=== PATIENT | male | born 1940 | race Caucasian/White ===

== ENCOUNTER 2016-11-09 18:46 | Emergency (ER) | payer MEDICAID, MEDICARE, OTHER ==
[2016-11-09] MEDS ORDERED: HYDROmorphone 2 MG/ML SDV IM ONE (19:01)
[2016-11-09] MEDS ORDERED: Ondansetron 4 MG/2 ML SDV IVPUSH ONE ×2 (19:14→20:35)
[2016-11-09] MEDS ORDERED: Sodium Chloride 0.9% 1,000 ML IV ONE (19:15)
[2016-11-09] MEDS ORDERED: ceFAZolin 2 GM in Sodium Chloride 0.9% 100 ML IV ONE (19:16)
[2016-11-09 21:43] VITALS: BP 135/85
--- NOTE | 2016-11-10 13:24 | ER ---
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 Pasteurella multocida was cultured out. The patient was treated with Flagyl and Unasyn from 10/01/16 through 10/13/16. He was discharged on 875 mg Augmentin for 21 days and finished on 11/05/16. He had one complication. He had mild dysuria in the hospital. This was result of what he calls, "I always get burning when I pass urine, any time I have antibiotics." Today at 1730 hours, the patient was carrying grain to his hogs at home. A horse that roams the barnyard outside of the pen chose to get at his corn that he was carrying. This resulted in the patient being knocked down twice by head butts from the horse. When Yusef Pinon, the patient, denied the horse further corn, the horse decided to kick him. It turned around, backed up and kicked him in the left humerus. He had instant pain. Arrangements made by paramedics to transport to the hospital for further evaluation. The patient arrived to the hospital at 1846 hours. At 1910 hours, a coapting shoulder splint was placed on a very crepitant humerus. X-ray was completed, demonstrated good position of the reduced humerus. At 2000 hours, repetitive physical exam, repetitive x8, radius and ulnar pulses were taken, and the pulses were 4+ out of 4+. Good capillary fill was noted but moderate acrocyanosis left forearm noted. At 2029 hours, Dr. Chen, orthopedist, [facility], accepted the patient for transfer to room [facility]. The patient will be going to the OR for further incision and drainage and lavage and washing of the wound. At 2100 hours, cap fill was noted to be 1+; acrocyanosis was less, as a new coapting shorter splint was placed on his left shoulder, upper arm. At 5 hours, the patient was transferred onto ambulance for transport to [facility]. Time spent with the patient 1846 hours through 2110 hours, 2 hours and 34 minutes. DIAGNOSES: 1. Left mid humerus comminuted transverse shaft fracture. 2. Compound fracture with 1.5 to 2 cm exit of bone through the lateral upper arm, compound fracture. 3. Status post 12 days of intravenous Flagyl and Unasyn treatment for Pasteurella multocida cultured out of his wound, dog bite from admission on 10/01/16 and 21 days Augmentin 875 mg treatment oral therapy through November 05, 2016. 4. Complication of dysuria from antibiotic use while in hospital with resultant normal PSA. 5. PATIENT RECEIVED 2 GRAM ANCEF IMMEDIATELY ON ARRIVE TO ED. /[id number] BAM/PARISH RICED
--- NOTE | 2016-11-10 14:05 | CR ---
INDICATION: Kicked by a horse. Comminuted fracture. LEFT HUMERUS: An AP view of the left humerus was obtained and revealed a transverse to oblique fracture with very minimal comminution at the mid shaft of the humerus. There appears to be anterior offset of the distal fracture fragment of approximately 7-8 mm. Slight distraction of the fracture fragments is noted. A splint is present. IMPRESSION: Comminuted fracture mid shaft left humerus. Minimal distraction and angulation on this image. [facility]
--- NOTE | 2016-11-10 14:12 | CR ---
INDICATION: Kicked by a horse. CHEST: A single frontal view of the chest 11/09/2016, in a patient kicked by a horse with comminuted left humeral fracture, revealed the heart to be somewhat enlarged in appearance, emphasized by a relatively poor inspiration. The examination was obtained AP portable supine. A definite active infiltrate or effusion or contusion was not identified. No definite pneumothorax was seen. The aorta is somewhat tortuous. MTDD
== END 2016-11-09 21:35 ==
LOC: FB.ED 18:46
DX: S42.352A Displaced comminuted fracture of shaft of humerus, left arm, initial encounter for closed fracture (principal); W55.12XA Struck by horse, initial encounter; Z87.898 Personal history of other specified conditions
CPT/HCPCS: 24505; 36415; 71010; 73060; 80053; 85025; 96365; 96372; 96375; 99283; 99285; A4217; J0690; J1170; J2405; J7030; J7040; 29105

== ENCOUNTER 2017-12-08 10:05 | Inpatient (IN) | payer MEDICARE, OTHER ==
[2017-12-08] MEDS: Sodium Chloride 0.9% 10 ML Syringe FLUSH PRN ×4 (10:10→20:41)
--- NOTE | 2017-12-08 10:10 | EDM.PDOC ---
ED HPI GENERAL MEDICAL PROBLEM - General Stated Complaint: CHEST PAIN Time Seen by Provider: 12/08/17 10:05 Source of Information: Reports: Patient, Family (a friend) History Limitations: Reports: Respiratory Distress - History of Present Illness INITIAL COMMENTS - FREE TEXT/NARRATIVE: 77 y.o.w.m with a H/O CHF, HTN and new onset of a fib, came to the ed due to CP while he underwent an Echocardiogram here at [place]. Echocardiogram showed an EF of 40 with wall motion abnormality of septum. Pt had no chest pain as he arrived here in the ed. Pt took a full ASA at 7 am. Pt lives with a friend and has no own family. Pt is a poor historian. No N/V/D or any ther acute medical issues. BP 141/96 Pulse 112 RR 18 Temp 36.8P2 sat 95% on RA Onset Date: 12/08/17 Onset Time: 08:00 Duration: Hour(s): Location: Reports: Chest Quality: Reports: Ache, Dull, Pressure Severity: Mild Improves with: Reports: Medication Worsens with: Reports: Other Context: Reports: Other (rest) Treatments [employer]: Reports: Aspirin (324 mg at 7 am) - Related Data Allergies Allergy/AdvReac Type Severity Reaction Status Date / Time No Known Allergies Allergy Verified 12/08/17 10:56 Home Meds: Home Meds Lisinopril/Hydrochlorothiazide [Lisinopril-Hctz 20-25 mg Tab] 1 tab PO DAILY # 60 tablet 10/13/16 [Rx] Metoprolol Succinate [Toprol XL 100mg] 100 mg PO DAILY #60 tab.er 10/13/16 [Rx] amLODIPine Besylate [Norvasc] 2.5 mg PO DAILY #60 tablet 10/13/16 [Rx] atorvaSTATin [Lipitor] 10 mg PO DAILY #60 tablet 10/13/16 [Rx] Furosemide [Lasix] 20 mg PO DAILY 12/08/17 [History] Past Medical History Cardiovascular History: Reports: High Cholesterol, Other (See Below) Other Cardiovascular History: WEAK VALVE Musculoskeletal History: Reports: Arthritis Psychiatric History: Reports: Addiction - Past Surgical History HEENT Surgical History: Reports: Oral Surgery Social & Family History - Family History Family Medical History: Noncontributory - Tobacco Use Smoking Status *Q: Former Smoker Years of Tobacco use: 50 Packs/Tins Daily: 0.5 Used Tobacco, but Quit: Yes Month/Year Tobacco Last Used: 09/14/16 Second Hand Smoke Exposure: No - Caffeine Use Caffeine Use: Reports: Coffee - Alcohol Use Days Per Week of Alcohol Use: 7 Number of Drinks Per Day: 3 Total Drinks Per Week: 21 - Recreational Drug Use Recreational Drug Use: No ED ROS GENERAL - Review of Systems Review Of Systems: See Below Constitutional: Reports: Weight Gain HEENT: Reports: No Symptoms Respiratory: Reports: Shortness of Breath Cardiovascular: Reports: Chest Pain Endocrine: Reports: No Symptoms GI/Abdominal: Reports: No Symptoms : Reports: No Symptoms Musculoskeletal: Reports: No Symptoms Skin: Reports: No Symptoms Neurological: Reports: No Symptoms Psychiatric: Reports: No Symptoms Hematologic/Lymphatic: Reports: No Symptoms Immunologic: Reports: No Symptoms ED EXAM, GENERAL - Physical Exam Exam: See Below Exam Limited By: Respiratory Distress General Appearance: Alert, WD/WN, Moderate Distress, Thin Eye Exam: Bilateral Eye: EOMI, Normal Inspection Ears: Normal External Exam Ear Exam: Bilateral Ear: Auricle Normal, Canal Normal Nose: Normal Inspection, Normal Mucosa Throat/Mouth: Normal Inspection, Normal Lips Head: Atraumatic, Normocephalic Neck: Normal Inspection, Supple, Non-Tender Respiratory/Chest: Respiratory Distress, Wheezing Cardiovascular: JVD, Tachycardia, Irregularly Irregular Peripheral Pulses: 2+: Carotid (L) GI/Abdominal: Normal Bowel Sounds, Soft (Male) Exam: Deferred Rectal (Males) Exam: Deferred Back Exam: Normal Inspection, Full Range of Motion Extremities: Normal Inspection, Normal Range of Motion, Redness Neurological: Alert, Oriented, CN II-XII Intact, Normal Cognition Psychiatric: Normal Affect, Normal Mood Skin Exam: Warm, Dry, Intact, Normal Color, Rash (bilat lower extremities) Lymphatic: No Adenopathy EKG INTERPRETATION EKG Date: 12/08/17 Time: 10:10 Rhythm: A-Fib Rate (Beats/Min): 106 [place]: Normal P-Wave: Absent QRS: Normal ST-T: Normal QT: Normal Comparison: NA - No Prior EKG Course - Vital Signs Text/Narrative:: 77 y.o.w.m with a H/O CHF, HTN and new onset of a fib, came to the ed due to CP while he underwent an Echocardiogram here at [place]. Echocardiogram showed an EF of 40 with wall motion abnormality of septum. Pt had no chest pain as he arrived here in the ed. Pt took a full ASA at 7 am. Pt lives with a friend and has no own family. Pt is a poor historian. No N/V/D or any ther acute medical issues. BP 141/96 Pulse 112 RR 18 Temp 36.8P2 sat 95% on RA PE: 77 y.o.w.m with new onset of A fib with RVR, EF 40% with WM abnormality Imaging: Cardiomegaly, no obvious CHF, no infiltrates, no other acute chances as per RAD Labs: BNP 3488 GFR 58 INR 1.31 WBC 7.2 BUN 19 C. 1.3 Trop 1.024 ECG: A fib with RVR, no acute ST/T wave changes Imaging: CXR enlatged heart. Echocardiogram: EF 40% with septal wall motion abnormalities. Official report is pending Impression: CHF, New onset of A-fib with RVR, HTN, pitting legeedema, cellulitis lower extremities Tx: Lasix, Duo neb, Metoprolol, 2 l O2 by NC, clonidine, 11.35 am Consultation: Dr. Thornton, Hospitalist accepted the pt fro admission Plan: Admit to [facility], inpatient Last Recorded V/S: Last Vital Signs Temp 36.7 C 12/08/17 16:50 Pulse 97 12/08/17 16:50 Resp 20 12/08/17 16:50 BP 153/109 H 12/08/17 16:50 Pulse Ox 100 12/08/17 16:50 - Orders/Labs/Meds Orders: Active Orders 24 hr Category Date Time Status Patient Status [ADT] Routine ADT 12/08/17 11:43 Active Cardiac Monitoring [RC] 08,16,00 Care 12/08/17 11:47 Active Intake and Output [RC] 06,14,22 Care 12/08/17 11:47 Active Oxygen Therapy [RC] PRN Care 12/08/17 11:43 Active Pulse Oximetry [RC] PRN Care 12/08/17 11:47 Active RT Aerosol Therapy [RC] .PRN Care 12/08/17 11:50 Active Up With Assistance [RC] 09,13,17,21 Care 12/08/17 11:43 Active Heart Healthy Diet [DIET] Diet 12/08/17 Breakfast Active CULTURE BLOOD [BC] Urgent Lab 12/08/17 12:35 Received CULTURE BLOOD [BC] Urgent Lab 12/08/17 12:40 Received Albuterol [Proventil Neb Soln] Med 12/08/17 11:43 Active 2.5 mg NEB Q2H PRN Sodium Chloride 0.9% [Saline Flush] Med 12/08/17 11:22 Active 10 ml FLUSH ASDIRECTED PRN Blood Culture x2 Reflex Set [OM.PC] Urgent Oth 12/08/17 11:43 Ordered Peripheral IV Insertion Adult [OM.PC] Routine Oth 12/08/17 10:10 Ordered Resuscitation Status Routine Resus Stat 12/08/17 11:43 Ordered EKG 12 Lead [EK] Routine Ther 12/08/17 10:07 Ordered Medication Orders Albuterol (Proventil Neb Soln) 2.5 mg NEB Q2H PRN PRN Reason: Shortness Of Breath/wheezing Furosemide (Lasix) 40 mg IVPUSH BID LUANNE Sodium Chloride (Saline Flush) 10 ml FLUSH ASDIRECTED PRN PRN Reason: Keep Vein Open Last Admin: 12/08/17 12:12 Dose: 10 ml Admin: 12/08/17 11:20 Dose: 10 ml Admin: 12/08/17 10:10 Dose: 10 ml Labs: Laboratory Tests 12/08/17 12/08/17 12/08/17 Range/Units 10:25 10:25 10:25 WBC 7.9 (4.5-12.0) X10-3/uL RBC 3.92 L (4.30-5.75) x10(6)uL Hgb 13.1 (11.5-15.5) g/dL Hct 39.4 (30.0-51.3) % MCV 100.5 H (80-96) fL MCH 33.4 (27.7-33.6) pg MCHC 33.2 (32.2-35.4) g/dL RDW 12.6 (11.5-15.5) % Plt Count 215 (125-369) X10(3)uL MPV 8.9 (7.4-10.4) fL Neut % (Auto) 73.7 (46-82) % Lymph % (Auto) 11.2 L (13-37) % Blanco % (Auto) 12.2 H (4-12) % Eos % (Auto) 2 (1.0-5.0) % Baso % (Auto) 1 (0-2) % Neut # (Auto) 5.7 (1.6-8.3) # Lymph # (Auto) 0.9 (0.6-5.0) # Blanco # (Auto) 1.0 (0.0-1.3) # Eos # (Auto) 0.2 (0.0-0.8) # Baso # (Auto) 0.1 (0.0-0.2) # PT 13.3 H (8.7-11.1) INR 1.31 H (0.89-1.13) Sodium 138 (135-145) mmol/L Potassium 3.6 (3.5-5.3) mmol/L Chloride 100 (100-110) mmol/L Carbon Dioxide 27 (21-32) mmol/L BUN 19 H (7-18) mg/dL Creatinine 1.3 (0.70-1.30) mg/dL Est Cr Clr Drug Dosing TNP Estimated GFR (MDRD) 54 L (>60) BUN/Creatinine Ratio 14.6 (9-20) Glucose 88 (80-116) mg/dL Calcium 9.3 (8.6-10.2) mg/dL Creatine Kinase 113 (60-160) IU/L Troponin I (<0.017-0.056) ng/mL NT-Pro-B Natriuret Pep (<=450) pg/mL 12/08/17 12/08/17 Range/Units 10:25 10:25 WBC (4.5-12.0) X10-3/uL RBC (4.30-5.75) x10(6)uL Hgb (11.5-15.5) g/dL Hct (30.0-51.3) % MCV (80-96) fL MCH (27.7-33.6) pg MCHC (32.2-35.4) g/dL RDW (11.5-15.5) % Plt Count (125-369) X10(3)uL MPV (7.4-10.4) fL Neut % (Auto) (46-82) % Lymph % (Auto) (13-37) % Blanco % (Auto) (4-12) % Eos % (Auto) (1.0-5.0) % Baso % (Auto) (0-2) % Neut # (Auto) (1.6-8.3) # Lymph # (Auto) (0.6-5.0) # Blanco # (Auto) (0.0-1.3) # Eos # (Auto) (0.0-0.8) # Baso # (Auto) (0.0-0.2) # PT (8.7-11.1) INR (0.89-1.13) Sodium (135-145) mmol/L Potassium (3.5-5.3) mmol/L Chloride (100-110) mmol/L Carbon Dioxide (21-32) mmol/L BUN (7-18) mg/dL Creatinine (0.70-1.30) mg/dL Est Cr Clr Drug Dosing Estimated GFR (MDRD) (>60) BUN/Creatinine Ratio (9-20) Glucose (80-116) mg/dL Calcium (8.6-10.2) mg/dL Creatine Kinase (60-160) IU/L Troponin I 0.024 (<0.017-0.056) ng/mL NT-Pro-B Natriuret Pep 3488 H* (<=450) pg/mL Meds: Medications Generic Name Dose Route Start Last Admin Trade Name Freq PRN Reason Stop Dose Admin Albuterol 2.5 mg 12/08/17 11:43 Proventil Neb Soln NEB Q2H PRN Shortness Of Breath/wheezing Furosemide 40 mg 12/08/17 21:00 Lasix IVPUSH BID LUANNE Sodium Chloride 10 ml 12/08/17 11:22 12/08/17 12:12 Saline Flush FLUSH 10 ml ASDIRECTED PRN Administration Keep Vein Open Discontinued Medications Generic Name Dose Route Start Last Admin Trade Name Freq PRN Reason Stop Dose Admin Clonidine HCl 0.1 mg 12/08/17 10:29 12/08/17 10:34 Catapres PO 12/08/17 10:30 0.1 mg ONETIME ONE Administration Enoxaparin Sodium 75 mg 12/08/17 11:51 12/08/17 12:27 Lovenox SUBCUT 12/08/17 11:52 Not Given ONETIME ONE Enoxaparin Sodium 75 mg 12/08/17 12:00 12/08/17 12:08 Lovenox SUBCUT 12/08/17 12:01 75 mg ONETIME ONE Administration Furosemide 40 mg 12/08/17 10:58 12/08/17 11:15 Lasix IVPUSH 12/08/17 10:59 40 mg NOW ONE Administration Metoprolol Tartrate 2.5 mg 12/08/17 11:53 12/08/17 12:09 Lopressor IVPUSH 12/08/17 11:54 2.5 mg ONETIME ONE Administration Departure - Departure Time of Disposition: 17:00 Disposition: Admitted As Inpatient 66 Condition: Fair Clinical Impression: A-fib Qualifiers: Atrial fibrillation type: unspecified Qualified Code(s): I48.91 - Unspecified atrial fibrillation Chest pain Qualifiers: Chest pain type: unspecified Qualified Code(s): R07.9 - Chest pain, unspecified - My Orders Last 24 Hours: My Active Orders 12/08/17 10:07 EKG 12 Lead [EK] Routine 12/08/17 10:10 Peripheral IV Insertion Adult [OM.PC] Routine 12/08/17 11:22 Sodium Chloride 0.9% [Saline Flush] 10 ml FLUSH ASDIRECTED PRN 12/08/17 11:43 Patient Status [ADT] Routine Oxygen Therapy [RC] PRN Up With Assistance [RC] 09,13,17,21 Albuterol [Proventil Neb Soln] 2.5 mg NEB Q2H PRN Blood Culture x2 Reflex Set [OM.PC] Urgent Resuscitation Status Routine 12/08/17 11:47 Cardiac Monitoring [RC] 08,16,00 Intake and Output [RC] 06,14,22 Pulse Oximetry [RC] PRN 12/08/17 11:50 RT Aerosol Therapy [RC] .PRN 12/08/17 12:35 CULTURE BLOOD [BC] Urgent 12/08/17 12:40 CULTURE BLOOD [BC] Urgent 12/08/17 Breakfast Heart Healthy Diet [DIET] - Assessment/Plan Last 24 Hours: My Active Orders 12/08/17 10:07 EKG 12 Lead [EK] Routine 12/08/17 10:10 Peripheral IV Insertion Adult [OM.PC] Routine 12/08/17 11:22 Sodium Chloride 0.9% [Saline Flush] 10 ml FLUSH ASDIRECTED PRN 12/08/17 11:43 Patient Status [ADT] Routine Oxygen Therapy [RC] PRN Up With Assistance [RC] 09,13,17,21 Albuterol [Proventil Neb Soln] 2.5 mg NEB Q2H PRN Blood Culture x2 Reflex Set [OM.PC] Urgent Resuscitation Status Routine 12/08/17 11:47 Cardiac Monitoring [RC] 08,16,00 Intake and Output [RC] 06,14,22 Pulse Oximetry [RC] PRN 12/08/17 11:50 RT Aerosol Therapy [RC] .PRN 12/08/17 12:35 CULTURE BLOOD [BC] Urgent 12/08/17 12:40 CULTURE BLOOD [BC] Urgent 12/08/17 Breakfast Heart Healthy Diet [DIET]
[2017-12-08] MEDS ORDERED: cloNIDine 0.1 MG Tab PO ONE (10:29)
[2017-12-08] MEDS ORDERED: Furosemide 40 MG/4 ML VIAL IVPUSH ONE (10:58)
--- NOTE | 2017-12-08 11:07 | CR ---
INDICATION: Chest pain, question active IA on echocardiogram. CHEST: AP upright portable view of the chest, 12/08/2017, was compared with , and revealed an appearance of increasing heart size - cardiomegaly. The aorta is tortuous with calcification in the arch. Overlying EKG leads are noted. There appears to be hyperaeration with interdigitation of the right hemidiaphragm leaf, suggesting COPD. A definite active infiltrate or effusion was not identified. However, infiltrate and/or atelectasis is difficult to exclude at the right lung base due to a density in that area, which could simply represent an epicardial fat pad. No definite evidence of CHF is seen. Report was given by phone to Dr. Michael parisi a.m. - 12/08/2017. RAMONA
[2017-12-08] MEDS ORDERED: Albuterol 0.083% 2.5 MG/3 ML Neb Soln NEB PRN (11:43)
[2017-12-08] MEDS ORDERED: Enoxaparin 60 MG/0.6 ML Syringe SUBCUT ONE (11:51)
[2017-12-08] MEDS ORDERED: Metoprolol Tartrate 5 MG/5 ML SDV IVPUSH ONE (11:53)
[2017-12-08] MEDS ORDERED: Enoxaparin 80 MG/0.8 ML Syringe SUBCUT ONE (12:00)
--- NOTE | 2017-12-08 12:34 | PCM.HP ---
H&P History of Present Illness - General Date of Service: 12/08/17 Admit Problem/Dx: Admission Diagnosis/Problem Admission Diagnosis/Problem CHF, Congestive heart failure Source of Information: Patient, Old Records History Limitations: Reports: No Limitations - History of Present Illness Initial Comments - Free Text/Narative: 77-year-old male was admitted because of chest pressure. He said that he was in the clinic yesterday for leg swelling, and an echocardiogram was ordered for today. While having the echocardiogram to manufacturing production technician reported that he completed depression the chest area. By the time I saw him the emergency room he complained of no chest pain or shortness of breath. He states that his leg swelling has been there for at least a week. He has a history of CHF, hypertension both previously stable,ETOH abuse current and stable, but no prior recorded history of atrial fibrillation. Denies coughing, nausea , vomiting or abdominal pain. Yusef lives with a friend of his. - Related Data Allergies/Adverse Reactions: Allergies Allergy/AdvReac Type Severity Reaction Status Date / Time No Known Allergies Allergy Verified 12/08/17 10:56 Home Medications: Home Meds Lisinopril/Hydrochlorothiazide [Lisinopril-Hctz 20-25 mg Tab] 1 tab PO DAILY # 60 tablet 10/13/16 [Rx] Metoprolol Succinate [Toprol XL 100mg] 100 mg PO DAILY #60 tab.er 10/13/16 [Rx] amLODIPine Besylate [Norvasc] 2.5 mg PO DAILY #60 tablet 10/13/16 [Rx] atorvaSTATin [Lipitor] 10 mg PO DAILY #60 tablet 10/13/16 [Rx] Furosemide [Lasix] 20 mg PO DAILY 12/08/17 [History] Past Medical History Cardiovascular History: Reports: High Cholesterol, Other (See Below) Other Cardiovascular History: WEAK VALVE Musculoskeletal History: Reports: Arthritis Psychiatric History: Reports: Addiction - Past Surgical History HEENT Surgical History: Reports: Oral Surgery Social & Family History - Family History Family Medical History: Noncontributory - Tobacco Use Smoking Status *Q: Former Smoker Years of Tobacco use: 50 Packs/Tins Daily: 0.5 Used Tobacco, but Quit: Yes Month/Year Tobacco Last Used: 09/14/16 Second Hand Smoke Exposure: No - Caffeine Use Caffeine Use: Reports: Coffee - Alcohol Use Days Per Week of Alcohol Use: 7 Number of Drinks Per Day: 3 Total Drinks Per Week: 21 - Recreational Drug Use Recreational Drug Use: No H&P Review of Systems - Review of Systems: Review Of Systems: ROS reveals no pertinent complaints other than HPI. Exam - Exam Exam: See Below - Vital Signs Vital Signs: Last Vital Signs Temp 98 F 12/08/17 10:05 Pulse 117 H 12/08/17 12:09 Resp 20 12/08/17 10:05 BP 149/100 H 12/08/17 12:09 Pulse Ox 98 12/08/17 11:38 Weight: 77.111 kg - Exam General: Alert, Oriented, 4 HEENT: PERRLA, Hearing Intact, Mucosa Moist & [place], Nares Patent, Normal Nasal Septum, Posterior Pharynx Clear, Conjunctiva Clear, EOMI, EACs Clear, TMs Clear Neck: Supple, Trachea Midline, 2 Lungs: Clear to Auscultation, Normal Respiratory Effort Cardiovascular: Irregular Rhythm. No: Systolic Murmur GI/Abdominal Exam: Normal Bowel Sounds, Soft, Non-Tender, No Organomegaly, No Distention, No Abnormal Bruit, No Mass, Pelvis Stable (Male) Exam: Deferred Rectal (Males) Exam: Deferred Back Exam: Normal Inspection, Full Range of Motion, NT Extremities: Pedal Edema, Increased Warmth Skin: Warm, Dry, Intact Neurological: Cranial Nerves Intact, Reflexes Equal Bilateral Neuro Extensive - Mental Status: Alert, Oriented x3, Normal Mood/Affect, Normal Cognition Neuro Extensive - Motor, Sensory, Reflexes: CN II-XII Intact, Normal Gait, Normal Reflexes Psychiatric: Alert, Normal Affect, Normal Mood - Patient Data Lab Results Last 24 hrs: Laboratory Results - last 24 hr 12/08/17 12/08/17 12/08/17 Range/Units 10:25 10:25 10:25 WBC 7.9 (4.5-12.0) X10-3/uL RBC 3.92 L (4.30-5.75) x10(6)uL Hgb 13.1 (11.5-15.5) g/dL Hct 39.4 (30.0-51.3) % MCV 100.5 H (80-96) fL MCH 33.4 (27.7-33.6) pg MCHC 33.2 (32.2-35.4) g/dL RDW 12.6 (11.5-15.5) % Plt Count 215 (125-369) X10(3)uL MPV 8.9 (7.4-10.4) fL Neut % (Auto) 73.7 (46-82) % Lymph % (Auto) 11.2 L (13-37) % [place] % (Auto) 12.2 H (4-12) % Eos % (Auto) 2 (1.0-5.0) % Baso % (Auto) 1 (0-2) % Neut # (Auto) 5.7 (1.6-8.3) # Lymph # (Auto) 0.9 (0.6-5.0) # [place] # (Auto) 1.0 (0.0-1.3) # Eos # (Auto) 0.2 (0.0-0.8) # Baso # (Auto) 0.1 (0.0-0.2) # PT 13.3 H (8.7-11.1) INR 1.31 H (0.89-1.13) Sodium 138 (135-145) mmol/L Potassium 3.6 (3.5-5.3) mmol/L Chloride 100 (100-110) mmol/L Carbon Dioxide 27 (21-32) mmol/L BUN 19 H (7-18) mg/dL Creatinine 1.3 (0.70-1.30) mg/dL Est Cr Clr Drug Dosing TNP Estimated GFR (MDRD) 54 L (>60) BUN/Creatinine Ratio 14.6 (9-20) Glucose 88 (80-116) mg/dL Calcium 9.3 (8.6-10.2) mg/dL Creatine Kinase 113 (60-160) IU/L Troponin I (<0.017-0.056) ng/mL NT-Pro-B Natriuret Pep (<=450) pg/mL 12/08/17 12/08/17 Range/Units 10:25 10:25 WBC (4.5-12.0) X10-3/uL RBC (4.30-5.75) x10(6)uL Hgb (11.5-15.5) g/dL Hct (30.0-51.3) % MCV (80-96) fL MCH (27.7-33.6) pg MCHC (32.2-35.4) g/dL RDW (11.5-15.5) % Plt Count (125-369) X10(3)uL MPV (7.4-10.4) fL Neut % (Auto) (46-82) % Lymph % (Auto) (13-37) % [place] % (Auto) (4-12) % Eos % (Auto) (1.0-5.0) % Baso % (Auto) (0-2) % Neut # (Auto) (1.6-8.3) # Lymph # (Auto) (0.6-5.0) # [place] # (Auto) (0.0-1.3) # Eos # (Auto) (0.0-0.8) # Baso # (Auto) (0.0-0.2) # PT (8.7-11.1) INR (0.89-1.13) Sodium (135-145) mmol/L Potassium (3.5-5.3) mmol/L Chloride (100-110) mmol/L Carbon Dioxide (21-32) mmol/L BUN (7-18) mg/dL Creatinine (0.70-1.30) mg/dL Est Cr Clr Drug Dosing Estimated GFR (MDRD) (>60) BUN/Creatinine Ratio (9-20) Glucose (80-116) mg/dL Calcium (8.6-10.2) mg/dL Creatine Kinase (60-160) IU/L Troponin I 0.024 (<0.017-0.056) ng/mL NT-Pro-B Natriuret Pep 3488 H* (<=450) pg/mL Result Diagrams: 12/08/17 10:25 12/08/17 10:25 EKG INTERPRETATION Rhythm: A-Fib Comparison: NA - No Prior EKG - Problem List (1) CHF (congestive heart failure) SNOMED Code(s): 60849806 ICD Code: I50.9 - HEART FAILURE, UNSPECIFIED Status: Chronic Current Visit: Yes Qualifiers: Heart failure type: combined systolic and diastolic (2) Afib SNOMED Code(s): 60718458 ICD Code: I48.91 - UNSPECIFIED ATRIAL FIBRILLATION Status: Acute Current Visit: Yes Qualifiers: Atrial fibrillation type: unspecified Qualified Code(s): I48.91 - Unspecified atrial fibrillation (3) HTN (hypertension) SNOMED Code(s): 00876124 ICD Code: I10 - ESSENTIAL (PRIMARY) HYPERTENSION Status: Chronic Current Visit: Yes Qualifiers: Hypertension type: essential hypertension Qualified Code(s): I10 - Essential (primary) hypertension (4) EtOH dependence SNOMED Code(s): 32614665 ICD Code: F10.20 - ALCOHOL DEPENDENCE, UNCOMPLICATED Status: Chronic Current Visit: Yes Qualifiers: Substance use status: uncomplicated Qualified Code(s): F10.20 - Alcohol dependence, uncomplicated (5) HLD (hyperlipidemia) SNOMED Code(s): 08248649 ICD Code: E78.5 - HYPERLIPIDEMIA, UNSPECIFIED Status: Chronic Current Visit: Yes Qualifiers: Hyperlipidemia type: unspecified Qualified Code(s): E78.5 - Hyperlipidemia , unspecified (6) Macrocytic anemia SNOMED Code(s): 33450697 ICD Code: D53.9 - NUTRITIONAL ANEMIA, UNSPECIFIED Status: Chronic Current Visit: Yes (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 SNOMED Code(s): 578306830937978 ICD Code: Z85.040 - PERSONAL HISTORY OF MALIGNANT CARCINOID TUMOR OF RECTUM Status: Chronic Current Visit: Yes Problem List Initiated/Reviewed/Updated: Yes Orders Last 24hrs: Active Orders 24 hr Category Date Time Status Patient Status [ADT] Routine ADT 12/08/17 11:43 Active Cardiac Monitoring [RC] CONTINUOUS Care 12/08/17 11:47 Active Intake and Output [RC] QSHIFT Care 12/08/17 11:47 Active Oxygen Therapy [RC] PRN Care 12/08/17 11:43 Active Oxygen Therapy [RC] PRN Care 12/08/17 12:27 Ordered Pulse Oximetry [RC] PRN Care 12/08/17 11:47 Active RT Aerosol Therapy [RC] ASDIRECTED Care 12/08/17 11:50 Active Up With Assistance [RC] ASDIRECTED Care 12/08/17 11:43 Active VTE/DVT Education [RC] Per Unit Routine Care 12/08/17 11:43 Active VTE/DVT Education [RC] Per Unit Routine Care 12/08/17 12:27 Ordered Vital Signs [RC] Q4H Care 12/08/17 11:43 Active Vital Signs [RC] Q4H Care 12/08/17 12:27 Ordered Heart Healthy Diet [DIET] Diet 12/08/17 Breakfast Ordered CBC WITH AUTO DIFF [HEME] AM Lab 12/09/17 05:11 Ordered COMPREHENSIVE METABOLIC PN,CMP [CHEM] AM Lab 12/09/17 05:11 Ordered CULTURE BLOOD [BC] Urgent Lab 12/08/17 11:50 Ordered CULTURE BLOOD [BC] Urgent Lab 12/08/17 11:50 Ordered MAGNESIUM [CHEM] AM Lab 12/09/17 05:11 Ordered PHOSPHORUS [CHEM] AM Lab 12/09/17 05:11 Ordered PRO B-TYPE NATRIUR PEPT,BNPPRO [CHEM] DAILY Lab 12/09/17 05:11 Ordered TROPONIN I [CHEM] AM Lab 12/09/17 05:11 Ordered TSH ULTRASENSITIVE [CHEM] AM Lab 12/09/17 05:11 Ordered Albuterol [Proventil Neb Soln] Med 12/08/17 11:43 Active 2.5 mg NEB Q2H PRN Furosemide [Lasix] Med 12/08/17 21:00 Ordered 40 mg IVPUSH BID Sodium Chloride 0.9% [Saline Flush] Med 12/08/17 11:22 Active 10 ml FLUSH ASDIRECTED PRN Blood Culture x2 Reflex Set [OM.PC] Urgent Oth 12/08/17 11:43 Ordered Peripheral IV Insertion Adult [OM.PC] Routine Oth 12/08/17 10:10 Ordered Resuscitation Status Routine Resus Stat 12/08/17 11:43 Ordered EKG 12 Lead [EK] Routine Ther 12/08/17 10:07 Ordered Medication Orders Albuterol (Proventil Neb Soln) 2.5 mg NEB Q2H PRN PRN Reason: Shortness Of Breath/wheezing Furosemide (Lasix) 40 mg IVPUSH BID LUANNE Sodium Chloride (Saline Flush) 10 ml FLUSH ASDIRECTED PRN PRN Reason: Keep Vein Open Last Admin: 12/08/17 12:12 Dose: 10 ml Admin: 12/08/17 11:20 Dose: 10 ml Admin: 12/08/17 10:10 Dose: 10 ml Assessment/Plan Comment:: 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 Patient clearly has clinical signs of CHF, and new atrial fibrillation. We'll admit him for diuresis , rate control and continue with blood pressure control.He will probably need Anticoagulation for prophylaxis of Stroke.Repeat Labs in AM ordered.
[2017-12-08] MEDS ORDERED: Furosemide 40 MG/4 ML VIAL IVPUSH SCH (21:00)
[2017-12-09] MEDS: Acetaminophen 325 MG Tab PO PRN ×2 (01:20→09:52)
--- NOTE | 2017-12-09 08:40 | PCM.PN ---
- General Info Date of Service: 12/09/17 Subjective Update: Yuesf denies any shortness of breath or chest pain. Complains of left knee pain. He still has bilateral leg swelling, worse on the left with redness. No fever or systemic symptoms. - Review of Systems Cardiovascular: Reports: No Symptoms Gastrointestinal: Reports: No Symptoms - Patient Data Vitals - Most Recent: Last Vital Signs Temp 98 F 12/09/17 04:00 Pulse 82 12/09/17 04:00 Resp 19 12/09/17 04:00 BP 146/82 H 12/09/17 04:00 Pulse Ox 98 12/09/17 04:00 Weight - Most Recent: 82.299 kg I&O - Last 24 Hours: Intake & Output 12/08/17 12/09/17 12/09/17 22:59 06:59 14:59 Intake Total 200 50 Output Total 1075 900 Balance -875 -850 Lab Results Last 24 Hours: Laboratory Results - last 24 hr 12/08/17 12/08/17 12/08/17 Range/Units 10:25 10:25 10:25 WBC 7.9 (4.5-12.0) X10-3/uL RBC 3.92 L (4.30-5.75) x10(6)uL Hgb 13.1 (11.5-15.5) g/dL Hct 39.4 (30.0-51.3) % MCV 100.5 H (80-96) fL MCH 33.4 (27.7-33.6) pg MCHC 33.2 (32.2-35.4) g/dL RDW 12.6 (11.5-15.5) % Plt Count 215 (125-369) X10(3)uL MPV 8.9 (7.4-10.4) fL Neut % (Auto) 73.7 (46-82) % Lymph % (Auto) 11.2 L (13-37) % [place] % (Auto) 12.2 H (4-12) % Eos % (Auto) 2 (1.0-5.0) % Baso % (Auto) 1 (0-2) % Neut # (Auto) 5.7 (1.6-8.3) # Lymph # (Auto) 0.9 (0.6-5.0) # [place] # (Auto) 1.0 (0.0-1.3) # Eos # (Auto) 0.2 (0.0-0.8) # Baso # (Auto) 0.1 (0.0-0.2) # PT 13.3 H (8.7-11.1) INR 1.31 H (0.89-1.13) Sodium 138 (135-145) mmol/L Potassium 3.6 (3.5-5.3) mmol/L Chloride 100 (100-110) mmol/L Carbon Dioxide 27 (21-32) mmol/L BUN 19 H (7-18) mg/dL Creatinine 1.3 (0.70-1.30) mg/dL Est Cr Clr Drug Dosing TNP Estimated GFR (MDRD) 54 L (>60) BUN/Creatinine Ratio 14.6 (9-20) Glucose 88 (80-116) mg/dL Calcium 9.3 (8.6-10.2) mg/dL Phosphorus (2.6-4.6) mg/dL Magnesium (1.8-2.5) mg/dL Total Bilirubin (0.1-1.3) mg/dL AST (5-25) IU/L ALT (12-36) U/L Alkaline Phosphatase (56-112) IU/L Creatine Kinase 113 (60-160) IU/L Troponin I (<0.017-0.056) ng/mL NT-Pro-B Natriuret Pep (<=450) pg/mL Total Protein (6.0-8.0) g/dL Albumin (3.2-4.6) g/dL Globulin g/dL Albumin/Globulin Ratio TSH, Ultra Sensitive (0.36-3.74) IU/mL 12/08/17 12/08/17 12/09/17 Range/Units 10:25 10:25 06:00 WBC 6.7 (4.5-12.0) X10-3/uL RBC 3.59 L (4.30-5.75) x10(6)uL Hgb 12.3 (11.5-15.5) g/dL Hct 36.0 (30.0-51.3) % MCV 100.3 H (80-96) fL MCH 34.3 H (27.7-33.6) pg MCHC 34.2 (32.2-35.4) g/dL RDW 12.7 (11.5-15.5) % Plt Count 197 (125-369) X10(3)uL MPV 8.9 (7.4-10.4) fL Neut % (Auto) 64.7 (46-82) % Lymph % (Auto) 17.5 (13-37) % [place] % (Auto) 15.1 H (4-12) % Eos % (Auto) 2 (1.0-5.0) % Baso % (Auto) 0 (0-2) % Neut # (Auto) 4.3 (1.6-8.3) # Lymph # (Auto) 1.2 (0.6-5.0) # [place] # (Auto) 1.0 (0.0-1.3) # Eos # (Auto) 0.2 (0.0-0.8) # Baso # (Auto) 0.0 (0.0-0.2) # PT (8.7-11.1) INR (0.89-1.13) Sodium (135-145) mmol/L Potassium (3.5-5.3) mmol/L Chloride (100-110) mmol/L Carbon Dioxide (21-32) mmol/L BUN (7-18) mg/dL Creatinine (0.70-1.30) mg/dL Est Cr Clr Drug Dosing Estimated GFR (MDRD) (>60) BUN/Creatinine Ratio (9-20) Glucose (80-116) mg/dL Calcium (8.6-10.2) mg/dL Phosphorus (2.6-4.6) mg/dL Magnesium (1.8-2.5) mg/dL Total Bilirubin (0.1-1.3) mg/dL AST (5-25) IU/L ALT (12-36) U/L Alkaline Phosphatase (56-112) IU/L Creatine Kinase (60-160) IU/L Troponin I 0.024 (<0.017-0.056) ng/mL NT-Pro-B Natriuret Pep 3488 H* (<=450) pg/mL Total Protein (6.0-8.0) g/dL Albumin (3.2-4.6) g/dL Globulin g/dL Albumin/Globulin Ratio TSH, Ultra Sensitive (0.36-3.74) IU/mL 12/09/17 12/09/17 Range/Units 06:00 06:00 WBC (4.5-12.0) X10-3/uL RBC (4.30-5.75) x10(6)uL Hgb (11.5-15.5) g/dL Hct (30.0-51.3) % MCV (80-96) fL MCH (27.7-33.6) pg MCHC (32.2-35.4) g/dL RDW (11.5-15.5) % Plt Count (125-369) X10(3)uL MPV (7.4-10.4) fL Neut % (Auto) (46-82) % Lymph % (Auto) (13-37) % [place] % (Auto) (4-12) % Eos % (Auto) (1.0-5.0) % Baso % (Auto) (0-2) % Neut # (Auto) (1.6-8.3) # Lymph # (Auto) (0.6-5.0) # [place] # (Auto) (0.0-1.3) # Eos # (Auto) (0.0-0.8) # Baso # (Auto) (0.0-0.2) # PT (8.7-11.1) INR (0.89-1.13) Sodium 138 (135-145) mmol/L Potassium 2.9 L (3.5-5.3) mmol/L Chloride 99 L (100-110) mmol/L Carbon Dioxide 29 (21-32) mmol/L BUN 22 H (7-18) mg/dL Creatinine 1.5 H (0.70-1.30) mg/dL Est Cr Clr Drug Dosing 40.24 Estimated GFR (MDRD) 45 L (>60) BUN/Creatinine Ratio 14.7 (9-20) Glucose 97 (80-116) mg/dL Calcium 9.0 (8.6-10.2) mg/dL Phosphorus 4.5 (2.6-4.6) mg/dL Magnesium 1.3 L (1.8-2.5) mg/dL Total Bilirubin 0.8 (0.1-1.3) mg/dL AST 20 (5-25) IU/L ALT 16 (12-36) U/L Alkaline Phosphatase 87 (56-112) IU/L Creatine Kinase (60-160) IU/L Troponin I 0.024 (<0.017-0.056) ng/mL NT-Pro-B Natriuret Pep 2667 H* (<=450) pg/mL Total Protein 6.4 (6.0-8.0) g/dL Albumin 2.9 L (3.2-4.6) g/dL Globulin 3.5 g/dL Albumin/Globulin Ratio 0.8 TSH, Ultra Sensitive 1.76 (0.36-3.74) IU/mL Med Orders - Current: Current Medications Acetaminophen (Tylenol) 650 mg PO Q4H PRN PRN Reason: Insomnia Last Admin: 12/09/17 01:20 Dose: 650 mg Albuterol (Proventil Neb Soln) 2.5 mg NEB Q2H PRN PRN Reason: Shortness Of Breath/wheezing Atorvastatin Calcium (Lipitor) 10 mg PO DAILY LUANNE Furosemide (Lasix) 40 mg PO BIDDIURETIC LUANNE Metoprolol Succinate (Toprol Xl) 100 mg PO DAILY LUANNE Sodium Chloride (Saline Flush) 10 ml FLUSH ASDIRECTED PRN PRN Reason: Keep Vein Open Last Admin: 12/08/17 20:41 Dose: 10 ml Discontinued Medications Clonidine HCl (Catapres) 0.1 mg PO ONETIME ONE Stop: 12/08/17 10:30 Last Admin: 12/08/17 10:34 Dose: 0.1 mg Enoxaparin Sodium (Lovenox) 75 mg SUBCUT ONETIME ONE Stop: 12/08/17 11:52 Last Admin: 12/08/17 12:27 Dose: Not Given Enoxaparin Sodium (Lovenox) 75 mg SUBCUT ONETIME ONE Stop: 12/08/17 12:01 Last Admin: 12/08/17 12:08 Dose: 75 mg Furosemide (Lasix) 40 mg IVPUSH NOW ONE Stop: 12/08/17 10:59 Last Admin: 12/08/17 11:15 Dose: 40 mg Furosemide (Lasix) 40 mg IVPUSH BID LUANNE Last Admin: 12/08/17 20:40 Dose: 40 mg Metoprolol Tartrate (Lopressor) 2.5 mg IVPUSH ONETIME ONE Stop: 12/08/17 11:54 Last Admin: 12/08/17 12:09 Dose: 2.5 mg - Exam Quality Assessment: No: Supplemental Oxygen General: Alert, Oriented HEENT: Pupils Equal, Pupils Reactive, EOMI, Mucous Membr. Moist/[place] Neck: Supple Lungs: Clear to Auscultation, Normal Respiratory Effort Cardiovascular: Irregular Rhythm Extremities: Pedal Edema, Increased Warmth, Redness Skin: Warm Neurological: No New Focal Deficit - Problem List & Annotations (1) CHF (congestive heart failure) SNOMED Code(s): 80832124 Code(s): I50.9 - HEART FAILURE, UNSPECIFIED Status: Chronic Current Visit : Yes Qualifiers: Heart failure type: combined systolic and diastolic (2) Afib SNOMED Code(s): 15759296 Code(s): I48.91 - UNSPECIFIED ATRIAL FIBRILLATION Status: Acute Current Visit: Yes Qualifiers: Atrial fibrillation type: unspecified Qualified Code(s): I48.91 - Unspecified atrial fibrillation (3) HTN (hypertension) SNOMED Code(s): 69711696 Code(s): I10 - ESSENTIAL (PRIMARY) HYPERTENSION Status: Chronic Current Visit: Yes Qualifiers: Hypertension type: essential hypertension Qualified Code(s): I10 - Essential (primary) hypertension (4) EtOH dependence SNOMED Code(s): 52747354 Code(s): F10.20 - ALCOHOL DEPENDENCE, UNCOMPLICATED Status: Chronic Current Visit: Yes Qualifiers: Substance use status: uncomplicated Qualified Code(s): F10.20 - Alcohol dependence, uncomplicated (5) HLD (hyperlipidemia) SNOMED Code(s): 47081563 Code(s): E78.5 - HYPERLIPIDEMIA, UNSPECIFIED Status: Chronic Current Visit: Yes Qualifiers: Hyperlipidemia type: unspecified Qualified Code(s): E78.5 - Hyperlipidemia , unspecified (6) Macrocytic anemia SNOMED Code(s): 09327719 Code(s): D53.9 - NUTRITIONAL ANEMIA, UNSPECIFIED Status: Chronic Current Visit: Yes (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 SNOMED Code(s): 605141295875672 Code(s): Z85.040 - PERSONAL HISTORY OF MALIGNANT CARCINOID TUMOR OF RECTUM Status: Chronic Current Visit: Yes (8) Left knee pain SNOMED Code(s): 05786521 Code(s): M25.562 - PAIN IN LEFT KNEE Status: Acute Current Visit: Yes (9) Cellulitis SNOMED Code(s): 128585511 Code(s): L03.90 - CELLULITIS, UNSPECIFIED Status: Acute Current Visit: Yes Qualifiers: Site of cellulitis: extremity Laterality: unspecified laterality - Problem List Review Problem List Initiated/Reviewed/Updated: Yes - My Orders Last 24 Hours: My Active Orders 12/08/17 12:27 Oxygen Therapy [RC] PRN Vital Signs [RC] 04,08,12,16,20,00 12/09/17 00:58 Acetaminophen [Tylenol] 650 mg PO Q4H PRN 12/09/17 08:34 Knee 3V Rt [CR] Routine C-REACTIVE PROTEIN [CHEM] Routine LACTIC ACID [CHEM] Routine SEDIMENTATION RATE MANUAL [HEME] Routine URIC ACID [CHEM] Routine 12/09/17 09:00 Metoprolol Succinate [Toprol XL] 100 mg PO DAILY atorvaSTATin [Lipitor] 10 mg PO DAILY 12/09/17 14:00 Furosemide [Lasix] 40 mg PO BIDDIURETIC 12/10/17 05:11 BASIC METABOLIC PANEL,BMP [CHEM] AM - Plan Plan:: I will obtain an x-ray of the left knee. In addition, ordered for uric acid levels CRP ESR. For cellulitis, I will initiate treatment with oral antibiotic- dicloxacillin. His creatinine is up 1.5 and I suspect this is due to diuresis. I will change his Lasix to oral. I will also reinstitute his beta moses from home, to control his blood pressure and heart rate. I will discuss with the pharmacist about an anticoagulant; given his high risk for stroke.
[2017-12-09] MEDS: Metoprolol Succinate 100 MG Tab.ER PO SCH (09:53)
[2017-12-09] MEDS: atorvaSTATin 10 MG Tab PO SCH (09:53)
[2017-12-09] MEDS: Aspirin 81 MG Tab.Chew PO SCH (11:19)
[2017-12-09] MEDS: Magnesium Oxide 400 MG Tab PO SCH ×2 (11:19→20:13)
[2017-12-09] MEDS: predniSONE 20 MG Tab PO SCH ×2 (11:19→20:12)
[2017-12-09] MEDS: Potassium Chloride 20 MEQ Tab.ER PO SCH ×2 (13:42→20:12)
[2017-12-09] MEDS: Furosemide 40 MG Tab PO SCH (13:42)
--- NOTE | 2017-12-09 13:51 | CR ---
INDICATION: Knee pain. LEFT KNEE: Three views of the left knee were obtained and revealed mild hypertrophic degenerative changes at the intercondylar spines and at the patellofemoral joint surfaces. As visualized, the femorotibial joint spaces appear to be fairly well maintained , as is the patellofemoral joint space. A fracture or dislocation was not identified. Arterial calcification is noted posteriorly. Bone density appears normal. IMPRESSION: 1. No acute fracture or dislocation. 2. Mild osteoarthritis. 3. ASD. MTDD
[2017-12-10] MEDS: Furosemide 40 MG Tab PO SCH (08:28)
[2017-12-10] MEDS: Aspirin 81 MG Tab.Chew PO SCH (08:28)
[2017-12-10] MEDS: Potassium Chloride 20 MEQ Tab.ER PO SCH (08:29)
[2017-12-10] MEDS: atorvaSTATin 10 MG Tab PO SCH (08:29)
[2017-12-10] MEDS: Magnesium Oxide 400 MG Tab PO SCH (08:30)
[2017-12-10] MEDS: Metoprolol Succinate 100 MG Tab.ER PO SCH (08:31)
[2017-12-10] MEDS: predniSONE 20 MG Tab PO SCH (08:31)
[2017-12-10 08:32] VITALS: BP 157/97
--- NOTE | 2017-12-10 09:44 | PCM.PN ---
- General Info Date of Service: 12/10/17 Subjective Update: I'll has no complaints today. Has improved. no chest pain but feels tired Functional Status: Reports: Pain Controlled - Review of Systems General: Reports: No Symptoms Pulmonary: Reports: No Symptoms Cardiovascular: Reports: No Symptoms Gastrointestinal: Reports: No Symptoms - Patient Data Vitals - Most Recent: Last Vital Signs Temp 97.2 F 12/10/17 08:00 Pulse 108 H 12/10/17 08:31 Resp 18 12/10/17 08:00 BP 157/97 H 12/10/17 08:31 Pulse Ox 94 L 12/10/17 08:00 Weight - Most Recent: 80.456 kg I&O - Last 24 Hours: Intake & Output 12/09/17 12/10/17 12/10/17 22:59 06:59 14:59 Intake Total 600 50 Balance 600 50 Lab Results Last 24 Hours: Laboratory Results - last 24 hr 12/10/17 Range/Units 06:15 Sodium 136 (135-145) mmol/L Potassium 4.0 D (3.5-5.3) mmol/L Chloride 99 L (100-110) mmol/L Carbon Dioxide 29 (21-32) mmol/L BUN 26 H (7-18) mg/dL Creatinine 1.4 H (0.70-1.30) mg/dL Est Cr Clr Drug Dosing 43.11 mL/min Estimated GFR (MDRD) 49 L (>60) BUN/Creatinine Ratio 18.6 (9-20) Glucose 143 H (80-116) mg/dL Calcium 9.2 (8.6-10.2) mg/dL Chau Results Last 24 Hours: Microbiology 12/08/17 12:40 Aerobic Blood Culture - Preliminary Blood - Venous - Lab Draw NO GROWTH AFTER 1 DAY Anaerobic Blood Culture - Preliminary NO GROWTH AFTER 1 DAY 12/08/17 12:35 Aerobic Blood Culture - Preliminary Blood - Venous NO GROWTH AFTER 1 DAY Anaerobic Blood Culture - Preliminary NO GROWTH AFTER 1 DAY Med Orders - Current: Current Medications Acetaminophen (Tylenol) 650 mg PO Q4H PRN PRN Reason: Insomnia Last Admin: 12/09/17 09:52 Dose: 650 mg Albuterol (Proventil Neb Soln) 2.5 mg NEB Q2H PRN PRN Reason: Shortness Of Breath/wheezing Aspirin (Aspirin) 81 mg PO DAILY LUANNE Last Admin: 12/10/17 08:28 Dose: 81 mg Atorvastatin Calcium (Lipitor) 10 mg PO DAILY [facility] Last Admin: 12/10/17 08:29 Dose: 10 mg Dicloxacillin Sodium (Dicloxacillin) 250 mg PO QID [facility] Last Admin: 12/10/17 08:28 Dose: 250 mg Furosemide (Lasix) 40 mg PO BIDDIURETIC [facility] Last Admin: 12/10/17 08:28 Dose: 40 mg Magnesium Oxide (Magnesium Oxide) 400 mg PO BID [facility] Last Admin: 12/10/17 08:30 Dose: 400 mg Metoprolol Succinate (Toprol Xl) 100 mg PO DAILY [facility] Last Admin: 12/10/17 08:31 Dose: 100 mg Potassium Chloride (Klor-Con M20) 20 meq PO TID [facility] Last Admin: 12/10/17 08:29 Dose: 20 meq Prednisone (Prednisone) 20 mg PO BID [facility] Last Admin: 12/10/17 08:31 Dose: 20 mg Sodium Chloride (Saline Flush) 10 ml FLUSH ASDIRECTED PRN PRN Reason: Keep Vein Open Last Admin: 12/08/17 20:41 Dose: 10 ml Discontinued Medications Clonidine HCl (Catapres) 0.1 mg PO ONETIME ONE Stop: 12/08/17 10:30 Last Admin: 12/08/17 10:34 Dose: 0.1 mg Enoxaparin Sodium (Lovenox) 75 mg SUBCUT ONETIME ONE Stop: 12/08/17 11:52 Last Admin: 12/08/17 12:27 Dose: Not Given Enoxaparin Sodium (Lovenox) 75 mg SUBCUT ONETIME ONE Stop: 12/08/17 12:01 Last Admin: 12/08/17 12:08 Dose: 75 mg Furosemide (Lasix) 40 mg IVPUSH NOW ONE Stop: 12/08/17 10:59 Last Admin: 12/08/17 11:15 Dose: 40 mg Furosemide (Lasix) 40 mg IVPUSH BID [facility] Last Admin: 12/08/17 20:40 Dose: 40 mg Metoprolol Tartrate (Lopressor) 2.5 mg IVPUSH ONETIME ONE Stop: 12/08/17 11:54 Last Admin: 12/08/17 12:09 Dose: 2.5 mg - Exam Quality Assessment: No: Supplemental Oxygen General: Alert, Oriented HEENT: Pupils Equal, Pupils Reactive, EOMI, Mucous Membr. Moist/[place]: Supple, Thyromegaly Cardiovascular: Irregular Rhythm Extremities: Pedal Edema - Problem List & Annotations (1) CHF (congestive heart failure) SNOMED Code(s): 91905749 Code(s): I50.9 - HEART FAILURE, UNSPECIFIED Status: Chronic Current Visit : Yes Qualifiers: Heart failure type: combined systolic and diastolic (2) Afib SNOMED Code(s): 35289095 Code(s): I48.91 - UNSPECIFIED ATRIAL FIBRILLATION Status: Acute Current Visit: Yes Qualifiers: Atrial fibrillation type: unspecified Qualified Code(s): I48.91 - Unspecified atrial fibrillation (3) HTN (hypertension) SNOMED Code(s): 60139036 Code(s): I10 - ESSENTIAL (PRIMARY) HYPERTENSION Status: Chronic Current Visit: Yes Qualifiers: Hypertension type: essential hypertension Qualified Code(s): I10 - Essential (primary) hypertension (4) EtOH dependence SNOMED Code(s): 68059917 Code(s): F10.20 - ALCOHOL DEPENDENCE, UNCOMPLICATED Status: Chronic Current Visit: Yes Qualifiers: Substance use status: uncomplicated Qualified Code(s): F10.20 - Alcohol dependence, uncomplicated (5) HLD (hyperlipidemia) SNOMED Code(s): 48833697 Code(s): E78.5 - HYPERLIPIDEMIA, UNSPECIFIED Status: Chronic Current Visit: Yes Qualifiers: Hyperlipidemia type: unspecified Qualified Code(s): E78.5 - Hyperlipidemia , unspecified (6) Macrocytic anemia SNOMED Code(s): 16899837 Code(s): D53.9 - NUTRITIONAL ANEMIA, UNSPECIFIED Status: Chronic Current Visit: Yes (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 SNOMED Code(s): 166948248398396 Code(s): Z85.040 - PERSONAL HISTORY OF MALIGNANT CARCINOID TUMOR OF RECTUM Status: Chronic Current Visit: Yes (8) Left knee pain SNOMED Code(s): 75902797 Code(s): M25.562 - PAIN IN LEFT KNEE Status: Acute Current Visit: Yes (9) Cellulitis SNOMED Code(s): 631973622 Code(s): L03.90 - CELLULITIS, UNSPECIFIED Status: Acute Current Visit: Yes Qualifiers: Site of cellulitis: extremity Laterality: unspecified laterality - Problem List Review Problem List Initiated/Reviewed/Updated: Yes - My Orders Last 24 Hours: My Active Orders 12/09/17 09:00 Dicloxacillin 250 mg PO QID Metoprolol Succinate [Toprol XL] 100 mg PO DAILY atorvaSTATin [Lipitor] 10 mg PO DAILY 12/09/17 10:15 Aspirin 81 mg PO DAILY Magnesium Oxide 400 mg PO BID predniSONE 20 mg PO BID 12/09/17 14:00 Furosemide [Lasix] 40 mg PO BIDDIURETIC Potassium Chloride [Klor-Con M20] 20 meq PO TID - Plan Plan:: I will discharge him home today, with prednisone for gout, Lasix for CHF and start him on Eliquis for A. fib. Will be seen by Dr. Uribe next week
--- NOTE | 2017-12-10 11:45 | DISCH ---
DISCHARGE DATE: 12/10/2017 REASON FOR ADMISSION: 1. Congestive heart failure. 2. Atrial fibrillation. 3. Hypertension. 4. History of alcohol abuse. 5. Hypokalemia. 6. Cellulitis of the legs. DISCHARGE DIAGNOSES: 1. Congestive heart failure. 2. Atrial fibrillation. 3. Hypertension. 4. History of alcohol abuse. 5. Hypokalemia. 6. Cellulitis of the legs. 7. Gout. BRIEF HISTORY: This is a 77-year-old male who is a patient of Dr. Uribe. He was admitted after he came in for an echocardiogram, but found an ejection fraction of 40%. He complained of legs pain and swelling and he had new onset atrial fibrillation. He was given some diuresis and rate control by metoprolol. The legs were slightly red. He had an elevated CRP and as such, dicloxacillin was started. His blood cultures were negative. His potassium initially was 2.9, it came up to 4.0 at discharge. BNP was 3400 on admission and 2600 on discharge. He had leg pain and pain in the left knee and his uric acid was 10.0. Prednisone was started, which improved his symptoms significantly. His creatinine upon admission was 1.3 after diuresis. It was 1.4 on discharge. He felt good enough to go home. He lives alone. There is a question of whether he can afford his medications. DISCHARGE MEDIATIONS: I discharged him home on the following medications: Dicloxacillin 250 mg q.i.d. for 10 days, furosemide 40 mg p.o. daily, metoprolol 100 mg daily, potassium chloride 20 mEq daily, Eliquis 2.5 mg b.i.d., aspirin 81 mg a day, and Lipitor 10 mg a day. FOLLOWUP: Dr. Uribe on Thursday. Return here with any worsening symptoms. I spent more than 35 minutes in the discharge of the patient. /[id number] TEGAN/[place]
== END 2017-12-10 11:00 | disposition home or self-care (01) | DRG 292 ==
LOC: FB.ED 10:05 → FB.MS 11:52
PROVIDERS: ADMIT Family Medicine; ATTEND Family Medicine
DX: I11.0 Hypertensive heart disease with heart failure (principal); I50.9 Heart failure, unspecified; R07.9 Chest pain, unspecified; L03.116 Cellulitis of left lower limb; E78.00 Pure hypercholesterolemia, unspecified; L03.115 Cellulitis of right lower limb; I50.42 Chronic combined systolic (congestive) and diastolic (congestive) heart failure; R06.02 Shortness of breath; R06.03 Acute respiratory distress; R06.2 Wheezing; R60.0 Localized edema; M19.90 Unspecified osteoarthritis, unspecified site; I48.91 Unspecified atrial fibrillation; E78.5 Hyperlipidemia, unspecified; D52.0 Dietary folate deficiency anemia; M25.562 Pain in left knee; M10.9 Gout, unspecified; E87.6 Hypokalemia; F10.10 Alcohol abuse, uncomplicated; Z85.040 Personal history of malignant carcinoid tumor of rectum; Z79.899 Other long term (current) drug therapy; Z87.891 Personal history of nicotine dependence
CPT/HCPCS: 36415; 71045; 80048; 82550; 83880; 84484; 85025; 85610; 93005; 96374; 99285; A9270; J1940; J7050 ×2; 73562-LT; 80053; 83605; 83735; 84100; 84443; 84550; 85651; 86140; 87040; 96372; 96375; J1650; J3490

== ENCOUNTER 2021-06-04 12:36 | Emergency (ER) | payer MEDICARE ==
--- NOTE | 2021-06-04 13:00 | EDM.PDOC ---
ED HPI GENERAL MEDICAL PROBLEM - General Chief Complaint: Cardiovascular Problem Stated Complaint: HIGH BLOOD PRESSURE Time Seen by Provider: 06/04/21 14:05 Source of Information: Reports: Patient, Family - History of Present Illness INITIAL COMMENTS - FREE TEXT/NARRATIVE: Patient presented to the ED because of an elevated BP although he is asymptomatic. He is also has a history of hypokalemia and hypomagnesemia and his PMD want it to be checked. He denies having any headache,dizziness, chest pain, dyspnea. - Related Data Allergies Allergy/AdvReac Type Severity Reaction Status Date / Time No Known Allergies Allergy Verified 12/08/17 10:56 Home Meds: Home Meds Metoprolol Succinate [Toprol XL 100mg] 100 mg PO DAILY #60 tab.er 10/13/16 [Rx] atorvaSTATin [Lipitor] 10 mg PO DAILY #60 tablet 10/13/16 [Rx] Aspirin [Halfprin] 81 mg PO DAILY 12/09/17 [History] Multivitamin [Daily Rola] 1 tab PO DAILY 12/09/17 [History] Apixaban [Eliquis] 5 mg PO BID #60 tablet 12/10/17 [Rx] Dicloxacillin 250 mg PO QID #40 cap 12/10/17 [Rx] Furosemide [Lasix] 40 mg PO DAILY #30 tablet 12/10/17 [Rx] Lisinopril 20 mg PO DAILY #60 tablet 12/10/17 [Rx] Potassium Chloride [Klor-Con M20] 20 meq PO DAILY #30 tab.er.prt 12/10/17 [Rx] predniSONE 20 mg PO BID #10 tab 12/10/17 [Rx] Past Medical History Cardiovascular History: Reports: High Cholesterol, Other (See Below) Other Cardiovascular History: WEAK VALVE Respiratory History: Reports: SOB Musculoskeletal History: Reports: Arthritis Psychiatric History: Reports: Addiction - Infectious Disease History Infectious Disease History: Reports: Other (See Below) Other Infectious Disease History: doesn't really remember - Past Surgical History HEENT Surgical History: Reports: Oral Surgery Social & Family History - Family History Family Medical History: No Pertinent Family History - Caffeine Use Caffeine Use: Reports: Coffee Other Caffeine Use: 1-2 ED ROS GENERAL - Review of Systems Review Of Systems: See Below Constitutional: Reports: No Symptoms HEENT: Reports: No Symptoms Respiratory: Reports: No Symptoms Cardiovascular: Reports: No Symptoms Endocrine: Reports: No Symptoms GI/Abdominal: Reports: No Symptoms : Reports: No Symptoms Musculoskeletal: Reports: No Symptoms ED EXAM, GENERAL - Physical Exam Exam: See Below Exam Limited By: No Limitations General Appearance: Alert, No Apparent Distress Eye Exam: Bilateral Eye: PERRL Ears: Normal External Exam Nose: Normal Inspection, Normal Mucosa Back Exam: Normal Inspection, Full Range of Motion Extremities: Normal Inspection, Normal Range of Motion, Non-Tender Neurological: Alert, Oriented, CN II-XII Intact, Normal Cognition Psychiatric: Normal Affect Skin Exam: Warm #1 Interpretation EKG Date: 06/04/21 Time: 13:05 Rhythm: A-Fib Rate (Beats/Min): 83 [place]: Normal P-Wave: Present QRS: LBBB ST-T: Normal QT: Normal Comparison: No Change EKG Interpretation Comments: AFib with normal VR Course - Vital Signs Text/Narrative:: Lab result was reviewed with patient Magnesium sulfate 4 gm IV x1 Labetalol 20 mg IV x1` Hydralazine 20 mg IV x1 Clonidine 0.2 mg po x 1 Last Recorded V/S: Last Vital Signs Temp Pulse Resp BP 167/108 H 06/04/21 15:53 Pulse Ox - Orders/Labs/Meds Orders: Active Orders 24 hr Category Date Time Status Magnesium Sulfate/Water [Magnesium Sulfate in Water 4 Med 06/04/21 14:15 Act katalina GM/50 ML] 50 ml IV ONETIME Sodium Chloride 0.9% [Normal Saline] 250 ml Med 06/04/21 14:15 Active IV ONETIME Sodium Chloride 0.9% [Saline Flush] Med 06/04/21 13:52 Active 10 ml FLUSH ASDIRECTED PRN Saline Lock Insert [OM.PC] Routine Oth 06/04/21 13:52 Ordered Medication Orders Magnesium Sulfate (Magnesium Sulfate In Water 4 Gm/50 Ml) 50 mls @ 25 mls/hr IV ONETIME ONE Stop: 06/04/21 16:14 Last Admin: 06/04/21 14:25 Dose: 25 mls/hr Documented by: KENDALL Sodium Chloride (Normal Saline) 250 mls @ 62.5 mls/hr IV ONETIME ONE Stop: 06/04/21 18:14 Last Admin: 06/04/21 14:25 Dose: 62.5 mls/hr Documented by: KENDALL Sodium Chloride (Sodium Chloride 0.9% 10 Ml Syringe) 10 ml FLUSH ASDIRECTED PRN PRN Reason: Keep Vein Open Last Admin: 06/04/21 14:05 Dose: 10 ml Documented by: KENDALL Labs: Laboratory Tests 06/04/21 06/04/21 Range/Units 13:15 13:15 WBC 6.2 (3.2-10.1) x10-3/uL RBC 3.77 L (3.90-5.90) x10(6)uL Hgb 13.0 (12.9-17.7) g/dL Hct 38.0 L (38.3-50.1) % MCV 100.9 H (80.8-98.7) fL MCH 34.4 H (27.0-33.3) pg MCHC 34.1 (28.7-35.3) g/dL RDW 13.5 (12.4-15.0) % Plt Count 187 (117-477) x10(3)uL MPV 8.2 (6.7-11.0) fL Neut % (Auto) 67.9 (40.3-71.8) % Lymph % (Auto) 16.9 (15.8-45.3) % [place] % (Auto) 11.5 (5.5-15.2) % Eos % (Auto) 2.9 (0.1-6.8) % Baso % (Auto) 0.8 (0.3-3.8) % Neut # (Auto) 4.2 (1.7-6.9) x10-3/uL Lymph # (Auto) 1.0 (0.5-4.5) x10-3/uL [place] # (Auto) 0.7 (0.0-1.2) x10-3/uL Eos # (Auto) 0.2 (0.0-0.6) x10-3/uL Baso # (Auto) 0.0 (0.0-0.3) x10-3/uL Sodium 140 (135-145) mmol/L Potassium 4.2 (3.5-5.3) mmol/L Chloride 104 D (100-110) mmol/L Carbon Dioxide 26 (21-32) mmol/L BUN 16 D (7-18) mg/dL Creatinine 1.1 (0.70-1.30) mg/dL Est Cr Clr Drug Dosing TNP Estimated GFR (MDRD) > 60 (>60) BUN/Creatinine Ratio 14.5 (9-20) Glucose 89 (80-116) mg/dL Calcium 9.5 (8.6-10.2) mg/dL Magnesium 1.2 L* (1.8-2.5) mg/dL Meds: Medications Generic Name Dose Route Start Last Admin Trade Name Heather PRN Reason Stop Dose Admin Magnesium Sulfate 50 mls @ 25 mls/hr 06/04/21 14:15 06/04/21 14:25 Magnesium Sulfate In Water 4 Gm/50 Ml IV 06/04/21 16:14 25 mls/hr ONETIME ONE Administration Sodium Chloride 250 mls @ 62.5 mls/hr 06/04/21 14:15 06/04/21 14:25 Normal Saline IV 06/04/21 18:14 62.5 mls/hr ONETIME ONE Administration Sodium Chloride 10 ml 06/04/21 13:52 06/04/21 14:05 Sodium Chloride 0.9% 10 Ml Syringe FLUSH 10 ml ASDIRECTED PRN Administration Keep Vein Open Discontinued Medications Generic Name Dose Route Start Last Admin Trade Name Heather PRN Reason Stop Dose Admin Clonidine HCl 0.2 mg 06/04/21 15:48 06/04/21 15:53 Clonidine 0.1 Mg Tab PO 06/04/21 15:49 0.2 mg NOW STA Administration Hydralazine HCl 20 mg 06/04/21 14:57 06/04/21 15:24 Hydralazine 20 Mg/Ml Sdv IVPUSH 06/04/21 14:58 20 mg NOW STA Administration Labetalol HCl 20 mg 06/04/21 13:53 06/04/21 14:05 Labetalol 20 Mg/4 Ml Syringe IVPUSH 06/04/21 13:54 20 mg NOW STA Administration Protocol Departure - Departure Time of Disposition: 15:20 Disposition: Home, Self-Care 01 Condition: Good Clinical Impression: Hypertensive crisis, Hypomagnesemia Instructions: Hypomagnesemia, Hypertension, Adult, [id number] Referrals: PCP,None [Primary Care Provider] - Forms: ED Department Discharge Additional Instructions: Please read discharge instructions on low magnesium and high blood pressure Low salt/low fat diet Exercise Return to the Ed tomorrow at 1400 as an outpatient for Magnesium IV therapy Follow up as needed Sepsis Event Note (ED) - Focused Exam Vital Signs: Vital Signs BP 06/04/21 15:53 167/108 H - My Orders Last 24 Hours: My Active Orders 06/04/21 13:52 Sodium Chloride 0.9% [Saline Flush] 10 ml FLUSH ASDIRECTED PRN Saline Lock Insert [OM.PC] Routine 06/04/21 14:15 Magnesium Sulfate/Water [Magnesium Sulfate in Water 4 GM/50 ML] 50 ml IV ONETIME Sodium Chloride 0.9% [Normal Saline] 250 ml IV ONETIME - Assessment/Plan Last 24 Hours: My Active Orders 06/04/21 13:52 Sodium Chloride 0.9% [Saline Flush] 10 ml FLUSH ASDIRECTED PRN Saline Lock Insert [OM.PC] Routine 06/04/21 14:15 Magnesium Sulfate/Water [Magnesium Sulfate in Water 4 GM/50 ML] 50 ml IV ONETIME Sodium Chloride 0.9% [Normal Saline] 250 ml IV ONETIME
[2021-06-04] MEDS ORDERED: Sodium Chloride 0.9% 10 ML Syringe FLUSH PRN (13:52)
[2021-06-04] MEDS ORDERED: Labetalol 20 MG/4 ML Syringe IVPUSH STA (13:53)
[2021-06-04] MEDS ORDERED: Magnesium Sulfate/Water 50 ML IV ONE (14:15)
[2021-06-04] MEDS ORDERED: Sodium Chloride 0.9% 250 ML IV ONE (14:15)
[2021-06-04] MEDS ORDERED: hydrALAZINE 20 MG/ML SDV IVPUSH STA (14:57)
[2021-06-04] MEDS ORDERED: cloNIDine 0.1 MG Tab PO STA (15:48)
[2021-06-04 19:20] VITALS: BP 138/85; PULSE 79
== END 2021-06-04 17:05 | disposition home or self-care (01) ==
LOC: FB.ED 12:36
DX: I16.9 Hypertensive crisis, unspecified (principal); E83.42 Hypomagnesemia; I44.7 Left bundle-branch block, unspecified; I48.91 Unspecified atrial fibrillation; E78.00 Pure hypercholesterolemia, unspecified; M19.90 Unspecified osteoarthritis, unspecified site; Z79.82 Long term (current) use of aspirin; Z79.01 Long term (current) use of anticoagulants; Z79.899 Other long term (current) drug therapy
CPT/HCPCS: 36415; 80048; 83735; 85025; 93005; 96365; 96366; 96375; 99283-25; A9270-GY; J0360; J3475; J3490; J7050

== ENCOUNTER 2023-01-19 17:27 | Emergency (ER) | payer MEDICARE ==
[2023-01-19] MEDS ORDERED: Sodium Chloride 0.9% 10 ML Syringe FLUSH PRN (17:30)
[2023-01-19 17:55] LABS: BASOPHILS PERCENT AUTO 0.5 % (0.3-3.8); EOSINOPHILS ABSOLUTE AUTO 0.1 x10-3/uL (0.0-0.6); EOSINOPHILS PERCENT AUTO 1.4 % (0.1-6.8); HEMATOCRIT 38.1 % (38.3-50.1); HEMOGLOBIN 12.8 g/dL (12.9-17.7); LYMPHOCYTES ABSOLUTE AUTO 1.1 x10-3/uL (0.5-4.5); MEAN CORPUSCULAR HEMOGLOBIN 33.8 pg (27.0-33.3); MEAN CORPUSCULAR HGB CONC 33.7 g/dL (28.7-35.3); MEAN CORPUSCULAR VOLUME 100.5 fL (80.8-98.7); MONOCYTES ABSOLUTE AUTO 0.6 x10-3/uL (0.0-1.2); MONOCYTES PERCENT AUTO 7.9 % (5.5-15.2); NEUTROPHILS ABSOLUTE AUTO 6.1 x10-3/uL (1.7-6.9); NEUTROPHILS PERCENT AUTO 76.2 % (40.3-71.8); PLATELET COUNT,PLT 257 x10(3)uL (117-477); RED BLOOD CELL COUNT 3.79 x10(6)uL (3.90-5.90); RED CELL DISTRIBUTION WIDTH 13.6 % (12.4-15.0)
[2023-01-19 17:59] LABS: BLOOD UREA NITROGEN,BUN 28 mg/dL (7-18); BUN/CREATININE RATIO 17.5 (9-20); CALCIUM 10.1 mg/dL (8.6-10.2); CARBON DIOXIDE,CO2 25 mmol/L (21-32); CHLORIDE,CL 103 mmol/L (100-110); CREATININE 1.6 mg/dL (0.70-1.30); ESTIMATED GFR 43 mL/min (>60); GLUCOSE RANDOM 92 mg/dL (80-116); SODIUM,NA 140 mmol/L (135-145)
[2023-01-19] MEDS: Sodium Chloride 0.9% 1,000 ML IV SCH (18:00)
[2023-01-19 18:06] LABS: A/G RATIO 0.8; ALANINE AMINOTRANSFERASE,ALT 31 U/L (12-36); ALBUMIN 3.8 g/dL (3.2-4.6); ALKALINE PHOSPHATASE 105 IU/L (56-112); ASPARTATE AMNIOTRANSFERASE,AST 27 IU/L (5-25); BILIRUBIN TOTAL 0.6 mg/dL (0.1-1.3); PROTEIN TOTAL,TP 8.4 g/dL (6.0-8.0)
[2023-01-19 18:22] VITALS: BP 113/68; PULSE 61
[2023-01-19 18:33] LABS: ETHANOL BLOOD MEDICAL 0.19 % (<0.03)
== END 2023-01-19 21:45 | disposition home or self-care (01) ==
LOC: FB.ED 17:27
DX: R55 Syncope and collapse (principal); F10.10 Alcohol abuse, uncomplicated; E78.00 Pure hypercholesterolemia, unspecified; Z79.82 Long term (current) use of aspirin; Z79.899 Other long term (current) drug therapy
CPT/HCPCS: 36415; 71045; 80053; 80307; 83735; 83880; 84443; 84484; 85025; 93005; 96360; 99284; J7030

== ENCOUNTER 2025-07-07 11:43 | Inpatient (IN) | payer MEDICARE ==
[2025-07-07] MEDS: Potassium Chloride 10 MEQ Tab.ER PO SCH (18:07)
[2025-07-07] MEDS: Codeine/guaiFENesin 10-100 MG/5 ML Syrup 5 ML Cup PO PRN (20:19)
[2025-07-09] MEDS: Nystatin Susp 100,000 Unit/ML 5 ML UD Cup PO SCH (09:19)
[2025-07-10] MEDS: Alum Hydroxide/Mag Hydroxide 15 ML, Lidocaine 2% 15 ML PO ONE (21:36)
[2025-07-11 12:23] LABS: PLATELET COUNT,PLT 376.0 x10(3)uL (117-477); RED BLOOD CELL COUNT 2.84 x10(6)uL (3.90-5.90); RED CELL DISTRIBUTION WIDTH 14.7 % (12.4-15.0); WHITE BLOOD CELL COUNT,WBC 12.2 x10-3/uL (3.2-10.1)
[2025-07-11 12:27] LABS: BLOOD UREA NITROGEN,BUN 18 mg/dL (7-18); CARBON DIOXIDE,CO2 30 mmol/L (21-32); CHLORIDE,CL 102 mmol/L (100-110); CREATININE 1.2 mg/dL (0.70-1.30); EST CRCL DRUG DOSING (CG) 41.58 mL/min; ESTIMATED GFR 59 mL/min (>60); GLUCOSE RANDOM 89 mg/dL (80-116); POTASSIUM,K 4.1 mmol/L (3.5-5.3); SODIUM,NA 137 mmol/L (135-145)
[2025-07-11 12:33] LABS: A/G RATIO 0.4; ALANINE AMINOTRANSFERASE,ALT 19 U/L (12-36); ASPARTATE AMNIOTRANSFERASE,AST 21 IU/L (5-25); BILIRUBIN TOTAL 0.4 mg/dL (0.1-1.3); PROTEIN TOTAL,TP 6.2 g/dL (6.0-8.0)
[2025-07-20 12:14] VITALS: BP 102/68; PULSE 107
== END 2025-07-20 13:28 | DRG 948 ==
LOC: FB.MS 13:43
PROVIDERS: ADMIT Family Medicine; ATTEND Internal Medicine
DX: R53.81 Other malaise (principal); I13.0 Hypertensive heart and chronic kidney disease with heart failure and stage 1 through stage 4 chronic kidney disease, or unspecified chronic kidney disease; I50.42 Chronic combined systolic (congestive) and diastolic (congestive) heart failure; N39.0 Urinary tract infection, site not specified; I48.19 Other persistent atrial fibrillation; B37.0 Candidal stomatitis; N17.9 Acute kidney failure, unspecified; M86.9 Osteomyelitis, unspecified; R33.9 Retention of urine, unspecified; N18.32 Chronic kidney disease, stage 3b; H54.7 Unspecified visual loss; E78.00 Pure hypercholesterolemia, unspecified; K21.9 Gastro-esophageal reflux disease without esophagitis; M19.90 Unspecified osteoarthritis, unspecified site; F10.10 Alcohol abuse, uncomplicated; D53.9 Nutritional anemia, unspecified; M1A.9XX1 Chronic gout, unspecified, with tophus (tophi); Z98.890 Other specified postprocedural states; Z72.0 Tobacco use; Z79.01 Long term (current) use of anticoagulants; Z79.899 Other long term (current) drug therapy
CPT/HCPCS: 36415; 51798; 80053; 83880; 84484; 85027; 87651; 97161-GP; 97165-GO; 97530-GO; 97530-GP; 97535-GO; 99305; 99307; 99315; A9270-GY